=== PATIENT | female | born 1975 | race Hispanic/Latino ===

== ENCOUNTER 2020-12-17 08:20 | Emergency (ER) | payer SELFPAY ==
[2020-12-17] MEDS ORDERED: dexAMETHasone 10 MG/ML VIAL ONE (09:47)
--- NOTE | 2020-12-17 09:48 | RAD REPORT ---
EXAM DESCRIPTION: CT - Soft Tissue Neck W/Contr CLINICAL HISTORY: sore throat, difficulty swallowing COMPARISON: No comparisons TECHNIQUE All CT scans are performed using dose optimization technique as appropriate and may includ e automated exposure control or mA/KV adjustment according to patient size. FINDINGS: Nasopharyngeal tissues are normal in appearance. Fossa Rosenmller are normal. Parapharyngeal fat triangles are symmetric. Tongue base structures are normal. Epiglottis and aryepiglottic folds are normal. Piriform sinuses are well aerated. The vocal cords are normal in appearance. Salivary glands are normal in appearance. Upper lung logan are clear. Included intracranial contents are unremarkable. Nonpathologic, presumably reactive right level 2 cervical chain lymph nodes which are slightly larger than on the left side. IMPRESSION: No acute soft tissue abnormality within the neck. Specifically, no enhancing fluid colle ctions.
[2020-12-17 10:32] LABS: SARS-COV-2 RT PCR NEGATIVE (NEGATIVE)
--- NOTE | 2020-12-17 11:12 | EDPHYS ---
Physician Documentation [facility] Name: Amanda Brown Age: 45 yrs Sex: Female : 1975 Arrival Date: 12/17/2020 Time: 08:22 Bed 16 Private MD: ED Physician Tl Figueroa HPI: 12/17 08:51 This 45 yrs old Female presents to ER via Ambulatory with complaints of Sore rn Throat. 08:51 The patient presents with sore throat, dysphagia. The patient describes throat pain as rn raw. Onset: The symptoms/episode began/occurred yesterday. Severity of symptoms: At their worst the symptoms were moderate, in the emergency department the symptoms have improved. Modifying factors: The symptoms are alleviated by nothing, the symptoms are aggravated by swallowing, Patient's oral intake status: good. Associated signs and symptoms: Pertinent positives: Sore throat Pertinent negatives chest pain, chills, cough, diarrhea, fever, flu-like symptoms, rhinorrhea, shortness of breath, vomiting. The patient has not experienced similar symptoms in the past. The patient has not recently seen a physician. Patient reports sore throat since yesterday, with pain when swallowing, improved this morning and able to drink and swallow her spit this morning. No fever. No trauma. Denies shortness of breath or cough. No chest pain.. Historical: - Allergies: 08:33 No Known Allergies; ll1 - PMHx: 08:33 None; ll1 - PSHx: 08:33 None; ll1 - Immunization history:: Client reports receiving the 2nd dose of the Covid vaccine. - Social history:: Smoking status: Patient denies any tobacco usage or history of. - Family history:: not pertinent. - Hospitalizations: : No recent hospitalization is reported. ROS: 08:51 Constitutional: Negative for fever, chills, and weight loss, Eyes: Negative for injury, rn pain, redness, and discharge, ENT: Positive for sore throat Neck: Positive anterior neck pain, negative for swelling Cardiovascular: Negative for chest pain, palpitations, and edema, Respiratory: Negative for shortness of breath, cough, wheezing, and pleuritic chest pain, Abdomen/GI: Negative for abdominal pain, nausea, vomiting, diarrhea, and constipation, : Negative for injury, bleeding, discharge, and swelling, MS/Extremity: Negative for injury and deformity, Skin: Negative for injury, rash, and discoloration, Neuro: Negative for headache, weakness, numbness, tingling, and seizure. Exam: 08:51 Constitutional: This is a well developed, well nourished patient who is awake, alert, rn and in no acute distress. Head/Face: Normocephalic, atraumatic. Eyes: Pupils equal round and reactive to light, extra-ocular motions intact. Lids and lashes normal. Conjunctiva and sclera are non-icteric and not injected. Cornea within normal limits. Periorbital areas with no swelling, redness, or edema. ENT: Pharynx without erythema or swelling. No stridor. No evidence of peritonsillar abscess. No tongue swelling. Uvula midline. Neck: Trachea midline, mild bilateral anterior cervical lymphadenopathy, no crepitus, no masses Cardiovascular: Regular rate and rhythm. No pulse deficits. Respiratory: No increased work of breathing, no retractions or nasal flaring. Skin: Warm, dry MS/ Extremity: Pulses equal, no cyanosis. Neuro: Awake and alert, GCS 15 Vital Signs: 08:31 BP 131 / 89; Pulse 81; Resp 17; Temp 98.7; Pulse Ox 100% ; Pain 8/10; ll1 10:20 BP 100 / 69; Pulse 81; Resp 20; Temp 98.7; Pulse Ox 100% on R/A; aj2 MDM: 08:41 Patient medically screened. rn 11:09 Differential diagnosis: gastroesophageal reflux disease, group A strep tonsillitis, rn influenza, laryngitis, pharyngitis, retropharyngeal abcess tonsillitis, upper respiratory infection, viral syndrome. Data reviewed: vital signs, nurses notes, lab test result(s), radiologic studies, CT scan, and as a result, I will discharge patient. Counseling: I had a detailed discussion with the patient and/or guardian regarding: the historical points, exam findings, and any diagnostic results supporting the discharge/admit diagnosis, lab results, radiology results, the need for outpatient follow up, to return to the emergency department if symptoms worsen or persist or if there are any questions or concerns that arise at home. Response to treatment: the patient's symptoms have mildly improved after treatment, and as a result, I will discharge patient. Special discussion: I discussed with the patient/guardian in detail that at this point there is no indication for admission to the hospital. It is understood, however, that if the symptoms persist or worsen the patient needs to return immediately for re-evaluation. ED course: No acute etiology of throat and neck pain found. Covid negative, flu negative, strep negative. CT neck soft tissue does not show any deep neck infection. Will DC home with antibiotics and return precautions.. 12/17 08:48 Order name: Strep rn 12/17 08:49 Order name: Group A Streptococcus Rapid Sc; Complete Time: 11:09 EDMS 12/17 10:10 Order name: Throat Culture EDMS 12/17 10:32 Order name: COVID-19/FLU A+B; Complete Time: 11:09 EDMS 12/17 08:48 Order name: CT Soft Tissue Neck W/contr; Complete Time: 09:50 rn Administered Medications: 09:26 Drug: Decadron - Dexamethasone 10 mg Route: IVP; Site: left antecubital; aj2 Disposition Summary: 12/17/20 11:11 Discharge Ordered Location: Home rn Problem: new rn Symptoms: have improved rn Condition: Stable rn Diagnosis - Pain in throat rn Followup: rn - With: Private Physician - When: As needed - Reason: Recheck today's complaints, Re-evaluation by your physician Discharge Instructions: - Discharge Summary Sheet rn - Pain Without a Known Cause rn - Sore Throat rn Forms: - Medication Reconciliation Form rn - Thank You Letter rn - Antibiotic compensation intern - Prescription Opioid Use rn - Work release form eb Prescriptions: - Augmentin 875-125 mg Oral Tablet - take 1 tablet by ORAL route every 12 hours for 10 days; 20 tablet; Refills: 0, rn Product Selection Permitted Signatures: Dispatcher [employer] EDMS Tl Figueroa MD MD rn Lewis, Lynsay, RN RN [email or web address] Nicole Echols aj2 Corrections: (The following items were deleted from the chart) 09:50 08:49 CORONAVIRUS+MR.LAB.BRZ ordered. EDMS EDMS 09:51 08:49 Influenza Screen (A \T\ B)+BA.LAB.BRZ ordered. EDMS EDMS
--- NOTE | 2020-12-17 11:12 | ER ---
Nurse's Notes [facility] Name: Amanda Brown Age: 45 yrs Sex: Female : 1975 Arrival Date: 12/17/2020 Time: 08:22 Bed 16 Private MD: Diagnosis: Pain in throat Presentation: 12/17 08:31 Chief complaint: Patient states: Sore throat for 2 days. No fever or N/V/D. Chief ll1 complaint:. Coronavirus screen: Client denies travel out of the [place] in the last 14 days. sore throat. Ebola Screen: Patient denies travel to an Ebola-affected area in the 21 days before illness onset. Initial Sepsis Screen: Does the patient meet any 2 criteria? No. Patient's initial sepsis screen is negative. Does the patient have a suspected source of infection? No. Patient's initial sepsis screen is negative. Risk Assessment: Do you want to hurt yourself or someone else? Patient reports no desire to harm self or others. Onset of symptoms was December 16, 2020. 08:31 Method Of Arrival: Ambulatory 1 08:49 Acuity: DESMOND 3 iw Historical: - Allergies: 08:33 No Known Allergies; ll1 - PMHx: 08:33 None; ll1 - PSHx: 08:33 None; ll1 - Immunization history:: Client reports receiving the 2nd dose of the Covid vaccine. - Social history:: Smoking status: Patient denies any tobacco usage or history of. - Family history:: not pertinent. - Hospitalizations: : No recent hospitalization is reported. Screenin:20 Abuse screen: Denies threats or abuse. Denies injuries from another. Nutritional aj2 screening: No deficits noted. Tuberculosis screening: No symptoms or risk factors identified. Fall Risk None identified. Assessment: 10:20 Reassessment: Patient appears in no apparent distress at this time. Patient and/or aj2 family updated on plan of care and expected duration. Pain level reassessed. Patient is alert, oriented x 3, equal unlabored respirations, skin warm/dry/pink. Pain: Denies pain. Complains of pain in right mandible Pain does not radiate. Pain currently is 4 out of 10 on a pain scale. Quality of pain is described as Soreness Pain began 2-3 days ago. Is continuous, Alleviated by nothing. Aggravated by eating. Respiratory: Airway is patent. Respiratory: Respiratory effort is even, unlabored. EENT: Throat. Vital Signs: 08:31 BP 131 / 89; Pulse 81; Resp 17; Temp 98.7; Pulse Ox 100% ; Pain 8/10; ll1 10:20 BP 100 / 69; Pulse 81; Resp 20; Temp 98.7; Pulse Ox 100% on R/A; aj2 ED Course: 08:22 Patient arrived in ED. as 08:33 Triage completed. ll1 08:33 Arm band placed on Patient placed in an exam room, on a stretcher. ll1 08:41 Tl Figueroa MD is Attending Physician. rn 09:15 Nicole Echols is Primary Nurse. aj2 09:26 Initial lab(s) drawn, by me, sent to lab. COVID swab sent to lab. Flu and/or RSV swab em1 sent to lab. Strep swab sent to lab. Inserted saline lock: 20 gauge in left antecubital area, using aseptic technique. Blood collected. 09:41 CT Soft Tissue Neck W/contr In Process Unspecified. EDMS 10:20 No apparent distress. Resting quietly. aj2 10:20 Patient has correct armband on for positive identification. aj2 10:20 Strep Sent. aj2 10:20 No provider procedures requiring assistance completed. IV is patent, is intact. aj2 Administered Medications: 09:26 Drug: Decadron - Dexamethasone 10 mg Route: IVP; Site: left antecubital; aj2 Outcome: 11:11 Discharge ordered by MD. rn 11:32 Discharged to home ambulatory. aj2 11:32 Condition: stable 11:32 Discharge instructions given to patient, Instructed on discharge instructions, follow up and referral plans. Demonstrated understanding of instructions, follow-up care, medications, Prescriptions given X 1. 11:33 Patient left the ED. aj2 Signatures: Dispatcher [employer] Lizabeth Joseph Irene, RN RN Tl Figueroa MD MD rn Martinez, Eric em1 Kylie Valverde RN RN ll1 Nicole Echols aj2 Corrections: (The following items were deleted from the chart) 08:56 08:31 Acuity: DESMOND 4 ll1 ll1
[2020-12-17 11:39] VITALS: TEMP 98.7; O2SAT 100
[2020-12-17 11:40] VITALS: BP 100/69
== END 2020-12-17 11:33 | disposition home or self-care (01) ==
LOC: ER 08:20
DX: R07.0 Pain in throat (principal); Z20.822 Contact with and (suspected) exposure to COVID-19
CPT/HCPCS: 0240U; 70491; 82565; 87070; 87081; 96374; 99284; J1100; Q9967